=== PATIENT | female | born 1990 | race Caucasian/White ===

== ENCOUNTER 2019-02-19 09:20 | Inpatient (IN) | payer OTHER ==
[~2019-02-19] VITALS: Ht 167.6 cm; Wt 114.8 kg
--- NOTE | 2019-02-19 07:46 | PREOPHP ---
DATE OF ADMISSION: 02/18/2019 HISTORY OF PRESENT ILLNESS: This is a 28-year-old lady, 7, para 6, her EDC 02/26/2019 at 39 weeks , admitted to labor and delivery area for repeat plus tubal ligation sterilization. The procedures were explained to the patient and she understood everything totally. The risks, benefits, and alternatives were discussed with her as well. She wanted to go for repeat . PAST PERSONAL HISTORY: No history of TB, asthma. 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 GYNECOLOGICAL HISTORY: She had menarche at the age of 16, every 28 days interval, 3 to 4 days duration, and moderate in amount. OBSTETRICAL HISTORY: She is 7, para 6. Her first delivery was in 2007. Last delivery was in 2017. All normal delivery except the last 1 was by C- section. FAMILY HISTORY: Noncontributory. REVIEW OF SYSTEMS: CARDIOVASCULAR: No chest pains. RESPIRATORY: No cough. GASTROINTESTINAL: No diarrhea, no vomiting. GENITOURINARY: No dysuria. PHYSICAL EXAMINATION: GENERAL: Reveals a conscious, coherent lady and in no acute distress. VITAL SIGNS: Her blood pressure 130/80, pulse rate 80 per minute, respirations 16 per minute. BREASTS, HEART AND LUNGS: Within normal limits. ABDOMEN: Soft and obese. Fundic height 38 cm. heart tones 140 per minute. PELVIC: Revealed the cervix to be 2 to 3 cm dilated, thick station, floating in cephalic presentation with the bag of water intact. EXTREMITIES: No pedal edema. ADMITTING DIAGNOSIS: A 39 weeks' intrauterine with 1 previous section and multiparity. The patient desires repeat plus sterilization. The procedures were explained to the patient and she understood everything totally. The risks, benefits and alternatives were discussed with her as well. Dictated By: BESSY GIL/NOE Conf#: [id number] DID#: [id number] MTDD
[~2019-02-19 09:20] MED LIST: FOLI-49 PO; HUM100VI13 SQ; INSU100V3 IJ; IRON18TA PO; PREN-6 PO
[2019-02-19 10:27] VITALS: Ht 167.6 cm; Wt 114.8 kg
[2019-02-19 10:28] VITALS: BP 127/59; PULSE 96; RESP 20
[2019-02-19] MEDS: LACTATED RINGER'S 1,000 ML IV SCH ×2 (10:53→13:39)
[2019-02-19] MEDS ORDERED: OXYTOCIN 30 UNITS/LR 500 ML IV PRN ×2 (11:00→17:00)
[2019-02-19] MEDS ORDERED: MISOPROSTOL 200 MCG TAB PR PRN ×2 (11:00→17:00)
[2019-02-19] MEDS ORDERED: METHYLERGONOVINE 0.2 MG INJ IM PRN ×2 (11:00→17:00)
[2019-02-19] MEDS ORDERED: OXYTOCIN 30 UNITS/LR 500 ML IV SCH ×2 (11:00→16:55)
[2019-02-19] MEDS ORDERED: CEFAZOLIN 2 GM/50 ML (PMX) 50 ML IVPB SCH (11:00)
[2019-02-19] MEDS ORDERED: CARBOPROST 250 MCG INJ IM PRN ×2 (11:00→17:00)
--- NOTE | 2019-02-19 14:31 | PREAC ---
Date/Time of Note Date/Time of Note DATE: 02/19/19 TIME: 14:30 Anesthesia Eval and Record Evaluation Time Pre-Procedure Interview DATE: 02/19/19 TIME: 14:30 Age 28 Sex female NPO: 6 hrs Preoperative diagnosis previous c section Planned procedure repeat with BTL Past Medical History Past Medical History: Includes Endo: Diabetes GI: Obesity Surgery & Anesthesia Issues No known issue Meds Anticoagulation: No Beta Vj within 24 hr: No Reason Beta Vj not given: Pt. not on B-Vj Reported Medications Insulin NPH Hum/Reg Insulin Hm (Relion Novolin 70-30 Vial) 100 Unit/1 Ml Vial, 22 UNIT SQ AC DINNER BEDTIME, VIAL 02/19/19 Insulin Regular, Human (Humulin R) 100 Unit/1 Ml Vial, 100 UNIT IJ AC BREAKFAST DINNER, VIAL 02/19/19 Folic Acid* (Folic Acid*) 1 Mg Tablet, 1 MG PO DAILY, TAB 02/19/19 Iron (Iron) 18 Mg Tablet, 18 MG PO DAILY, TAB 02/19/19 Vits #93-Iron Fum-FA ( Formula) 1 Each Tablet, 1 TAB PO DAILY, #1 TAB 02/19/19 Current Medications Lactated Ringer's 1,000 ml @ 125 mls/hr Q8H IV Last administered on 02/19/19at 13:39; Admin Dose 125 MLS/HR; Start 02/19/19 at 10:53 Cefazolin Sodium/ Dextrose 50 ml @ 100 mls/hr ONCE IVPB ; Start 02/19/19 at 11:00 Oxytocin/Lactated Ringer's 500 ml @ 125 mls/hr POST IV ; Start 02/19/19 at 11:00 Oxytocin/Lactated Ringer's 500 ml @ 0 mls/hr ONCE PRN IV .VAGINAL BLEEDING; Start 02/19/19 at 11:00 Methylergonovine Maleate (Methergine) 0.2 mg ONCE PRN IM .VAGINAL BLEEDING; Start 02/19/19 at 11:00 Carboprost Tromethamine (Hemabate) 250 mcg ONCE PRN IM .VAGINAL BLEEDING; Start 02/19/19 at 11:00 Misoprostol (Cytotec) 1,000 mcg ONCE PRN [place] .VAGINAL BLEEDING; Start 02/19/19 at 11:00 Meds reviewed: Yes Allergies Coded Allergies: No Known Allergy (Unverified , 02/19/19) Allergies Reviewed: Yes Labs/Studies Labs Reviewed: Reviewed by anesthesiologist Result Diagram: 02/19/19 1000 02/19/19 1000 Laboratory Tests 02/19/19 10:00 Blood Bank Test 02/19/19 10:00 Antibody Screen NEGATIVE Blood Type O POSITIVE Rh Immune Globulin Candidate NO test: N/A Pre-procedure Exam Last vitals Vital Signs Date Temp Pulse Resp B/P (MAP) Pulse Ox O2 O2 Flow FiO2 Time Delivery Rate 02/19/19 98.4 96 20 127/59 Room Air 10:28 (81) Airway: Adequate mouth opening, Adequate thyromental dist Mallampati: Mallampati IV Teeth: Normal Lung: Normal Heart: Normal ASA Physical Status ASA physical status: 3 Emergency: None Pre-operative Attestations Prior to commencing anesthesia and surgery, the patient was re-evaluated, there was verification of: *The patient's identity *The results of appropriate recent lab work and preoperative vital signs *The above evaluation not changing prior to induction *Anesthetic plan, risk benefits, alternative and complications discussed with patient/family; questions answered; patient/family understands, accepts and wishes to proceed. ANJELICA RAUSCH DO Feb 19, 2019 14:31
[2019-02-19] MEDS ORDERED: METHYLERGONOVINE 0.2 MG INJ ONE (15:30)
[2019-02-19] MEDS ORDERED: CEFAZOLIN 1 GM INJ ONE (15:30)
[2019-02-19] MEDS ORDERED: morphine SULFATE/PF (10 MG/10 ML) INJ ONE (15:37)
[2019-02-19] MEDS ORDERED: FENTAnyl 50 MCG/ML VIAL ONE (15:37)
[2019-02-19] MEDS ORDERED: DEXAMETHASONE 4 MG/ML 1 ML INJ ONE (15:48)
[2019-02-19] MEDS ORDERED: FAMOTIDINE 20 MG INJ ONE (15:48)
[2019-02-19] MEDS ORDERED: ONDANSETRON 4 MG INJ ONE (15:48)
[2019-02-19] MEDS ORDERED: MIDAZOLAM 1 MG/ML 2 ML INJ ONE (16:06)
[2019-02-19] MEDS ORDERED: ONDANSETRON 4 MG INJ IV PRN (16:30)
[2019-02-19] MEDS ORDERED: ZOLPIDEM 5 MG TAB PO PRN (16:30)
[2019-02-19] MEDS ORDERED: NALOXONE (0.4 MG/ML) INJ IV PRN (16:30)
[2019-02-19] MEDS ORDERED: HYDROmorphONE 0.5 MG/0.5 ML SYG IV PRN ×2 (16:30)
[2019-02-19] MEDS ORDERED: DIPHENHYDRAMINE 50 MG INJ IV PRN (16:30)
--- NOTE | 2019-02-19 16:30 | PAC ---
Date/Time of Note Date/Time of Note DATE: 02/19/19 TIME: 16:30 Post-Anesthesia Notes Post-Anesthesia Note Last documented vital signs Vital Signs Date Temp Pulse Resp B/P (MAP) Pulse Ox O2 O2 Flow FiO2 Time Delivery Rate 02/19/19 98 92 18 104/59 99 Room Air Activity: WNL Respiratory function: WNL Cardiovascular function: WNL Mental status: Baseline Pain reasonably controlled: Yes Hydration appropriate: Yes Nausea/Vomiting absent: Yes ANJELICA RAUSCH DO Feb 19, 2019 16:30
--- NOTE | 2019-02-19 16:52 | OPPN ---
Date/Time of Note Date/Time of Note DATE: 02/19/19 TIME: 16:51 Operative Report Planned Procedure Procedure date Feb 19, 2019 Procedure(s) REPEAT CSECTION AND BTL Performed by see signature line Photo Cartographer: GRACIE MERCEDES MD 2nd Photo Cartographer none Anesthesiologist: ANJELICA RAUSCH DO Pre-procedure diagnosis 39 WEEKS IUP PREVIOUS CSECTION MULTIPARITY DESIRES STERILIZATION GDM [id number] Anesthesia Type: [id number] spinal Post-Procedure Post-procedure diagnosis 39 WEEKS IUP PREVIOUS CSECTION MULTIPARITY DESIRES STERILIZATION GDM Findings Live Baby GIRL, Apgars 8and 9, weight 9LBS 3OZ Estimated Blood Loss: 600 - 700 mls Specimen(s) none Grafts/Implant(s) PORTION OF BOTH TUBES AND PLACENTA Complication(s) none BESSY IYER MD Feb 19, 2019 16:52
[2019-02-19] MEDS ORDERED: LACTATED RINGER'S 1,000 ML IV SCH (16:55)
[2019-02-19] MEDS ORDERED: LANOLIN HPA 1 PKT TOP PRN (17:00)
[2019-02-19] MEDS ORDERED: METHYLERGONOVINE 0.2 MG TAB PO PRN (17:00)
[2019-02-19] MEDS: KETOROLAC 30 MG INJ IV PRN (19:23)
[2019-02-19 20:45] VITALS: BP 114/61; PULSE 102; RESP 19
[2019-02-19] MEDS: SENNA/DOCUSATE NA (8.6MG/50MG) TAB PO SCH (21:39)
[2019-02-20] VITALS: BP 109/57; PULSE 99; RESP 17
[2019-02-20 04:03] VITALS: BP 104/59; PULSE 92; RESP 18
[2019-02-20] MEDS: LACTATED RINGER'S 1,000 ML IV SCH ×2 (06:35→10:53)
[2019-02-20 08:00] VITALS: BP 108/62; PULSE 82; RESP 18
--- NOTE | 2019-02-20 08:48 | OPR ---
DATE OF OPERATION: 02/19/2019 PREOPERATIVE DIAGNOSIS: A 39 weeks' intrauterine with 1 previous section, multipa rity, patient desires sterilization, obesity. POSTOPERATIVE DIAGNOSIS: A 39 weeks' intrauterine with 1 previous section, multip arity, patient desires sterilization, obesity. PROCEDURE PERFORMED: Low transverse section plus bilateral tubal ligation and transection. SURGEON: Bessy Mosquera MD. MEDICAL RECORDS SUPERVISOR: Dr. Benitez. ANESTHESIA: Spinal. ANESTHESIOLOGIST: Dr. Wilkerson. OPERATIVE TECHNIQUE: Under spinal anesthesia, the patient was prepped and draped in the usual fashio n for abdominal surgery. After checking for the effect of the anesthesia, a Pfannenstiel incision on the previous scar was excised, 14 cm skin incision was performed. The incision was carried from the skin up to the fascia. Upon opening the skin up to the fascia, the small blood vessels were noted t o be oozing and these were all cauterized. Fascia was opened transversely followed by splitting the muscles vertically and the peritoneum vertically. Upon opening the abdominal cavity, the bladder li de was put in place. The muscles on both sides of the lower abdomen were cut transversely. Then, th e bladder blade was put in place. A small salomon was performed from the serosa up to the endometrium o n the lower uterine segment and the salomon was carried sideways with the aid of my 2 fingers. My left hand was inserted on the lower segment of the uterus and the bag of water was ruptured. Clear fluid was noted. The baby's head was tried to be delivered with good fundal pressure, but with difficulty, so that the vacuum was applied twice, the first one popped up right away and the second one delivere d the baby's head in 3 seconds. The baby's airways was quickly suctioned with amniotic fluid. Then there was 1 loop of tight cord around the baby's neck that needs to be released prior to the delivery of the rest of the body of the baby. Then, baby's cord was clamped after 30 seconds. The baby's ai rways were quickly suctioned with amniotic fluid and baby was handed to the nursery nurse and to the coating technician. The placenta was delivered manually and complete. The uterus was exteriorized. T he uterus was cleansed with wet lap sponge to make sure that no membranes were left behind. Af ter correct sponge count, the uterus was closed in the usual fashion using #1 chromic for the very fi rst layer, continuous locking suture was used followed by #1 chromic for the second layer, imbricatin g sutures were used. Bleeders were checked, and there was no bleeding noted. After checking for any bleeders in which there were none, then the left tube was grasped on the center where the avascular area was. A 1 cm tube was stick tied at the proximal and distal portions with 2-0 silk. The stick t ie with 2-0 chromic above the first silk tie and another free tie with 2-0 chromic above the second t ie. The left tube was cut and the cut ends were cauterized. The left fimbria was identified. Bleed ers were checked, and there was no bleeding noted. Then, the same thing was done on the right side. The fimbria was identified on the right side, 1 cm tube was cut as well and the cut ends were cauter ized. Bleeders were checked, and there was no bleeding noted. Hematoma on both broad ligaments were checked and there was none noted. Then, once again, the uterine incision was checked for any bleede rs and there was no bleeding noted. Then the uterus was put back to the pelvic cavity. Once again, uterine incision was checked for any bleeders and there was no bleeding noted. After correct sponge count, needle count and instrument count as confirmed by the release and technical records clerk and wheel aligner, the abdomen w as closed in the usual fashion using 0 Vicryl for the peritoneum, 0 Vicryl for the muscles, for the f ascia 0 Vicryl continuous stitch was used followed by few [id number] suture, for the subcutaneou s tissue it was closed with 3-0 Vicryl and the skin was closed with 3-0 Vicryl, subcuticular suture w as used. The patient tolerated the procedure well. Estimated blood loss about 700 mL. After the pr ocedure was done, then a vaginal exam was done and the uterus was noted to be hypotonic and some bloo d clots were noted inside the uterus. These were all extracted. Pitocin was given and also 1 dose o f Methergine and the uterus contracted. The patient tolerated the procedure well. Estimated blood l oss about 700 mL. She delivered a healthy baby girl at 1605 p.m. on 02/19/2019 weighing 9 pounds 3 o unces, 4160 grams, 8 and 9, 20.25 inches long. Dictated By: BESSY GIL/NTS Conf#: [id number] DID#: [id number] CC: SALVATORE BENITEZ MD;*EndCC*
[2019-02-20] MEDS: SENNA/DOCUSATE NA (8.6MG/50MG) TAB PO SCH ×2 (09:27→21:48)
[2019-02-20] MEDS ORDERED: HYDROCODONE/APAP (5/325) TAB PO PRN ×2 (09:30)
[2019-02-20 12:14] VITALS: BP 109/58; PULSE 90; RESP 18
[2019-02-20] MEDS: KETOROLAC 30 MG INJ IV PRN (15:16)
[2019-02-20 15:22] VITALS: BP 107/53; PULSE 87; RESP 18
--- NOTE | 2019-02-20 17:22 | PN ---
Date/Time of Note Date/Time of Note DATE: 02/20/19 TIME: 17:20 Assessment/Plan VTE Prophylaxis Risk score (from Ns)>0 risk: 3 SCD applied (from Ns): Yes Pharmacological prophylaxis: NA/contraindicated Pharm contraindication: low risk/ambulating Lines/Catheters IV Catheter Type (from Nrs): Peripheral IV Assessment/Plan Assessment/Plan POSTCSECTION DAY 1 ORDERED ADVANCE DIET TOLERATED CBC ON 3RD POSTOP DAY Result Diagram: 02/20/19 0750 02/20/19 0750 Results 24hrs Laboratory Tests Test 02/20/19 06:28 02/20/19 07:50 Lab Scanned Report REFERENCE LAB White Blood Count 11.9 #H Red Blood Count 3.65 L Hemoglobin 11.2 L Hematocrit 34.1 L Mean Corpuscular Volume 93.4 Mean Corpuscular Hemoglobin 30.7 Mean Corpuscular Hemoglobin Concent 32.8 Red Cell Distribution Width 13.4 Platelet Count 236 Mean Platelet Volume 10.9 H Immature Granulocytes % 0.400 Neutrophils % 72.0 Lymphocytes % 16.7 Monocytes % 10.3 Eosinophils % 0.3 Basophils % 0.3 Nucleated Red Blood Cells % 0.0 Immature Granulocytes # 0.050 H Neutrophils # 8.6 H Lymphocytes # 2.0 Monocytes # 1.2 H Eosinophils # 0.0 Basophils # 0.0 Nucleated Red Blood Cells # 0.0 Sodium Level 135 Potassium Level 3.5 Chloride Level 103 Carbon Dioxide Level 25 Anion Gap 7 Blood Urea Nitrogen 11 Creatinine 0.57 Est Glomerular Filtrat Rate mL/min > 60 Glucose Level 63 #L Calcium Level 8.6 Subjective 24 Hr Interval Summary Free Text/Dictation POST CSECTION DAY 1 COMPLAIN OF INCISIONAL PAINS GOOD URINE OUTPUT PASSING GAS PER RECTUM NO BOWEL MOVEMENT YET Exam/Review of Systems Exam Vitals Vital Signs Date Temp Pulse Resp B/P (MAP) Pulse Ox O2 O2 Flow FiO2 Time Delivery Rate 02/20/19 98.8 87 18 107/53 Room Air 15:22 (71) 02/20/19 95 12:14 Intake and Output 02/19/19 02/19/19 02/20/19 1515:00 23:00 07:00 IntakeIntake Total 450 ml 590 ml OutputOutput Total 350 ml 2695 ml 650 ml BalanceBalance -350 ml -2245 ml -60 ml Exam VITAL SIGNS STABLE: YES AFEBRILE: YES BREAST NOT ENGORGED, NON-TENDER, NO APPRECIABLE MASS: YES LUNGS CLEAR, NO RALES, WHEEZES, RHONCHI: YES SINUS RHYTHM WITHOUT MURMUR: YES ABDOMEN: NON-TENDER FUNDUS: BELOW UMBILICUS BOWEL SOUNDS: PRESENT UTERUS: FIRM INCISION (CLEAN, DRY, AND INTACT): YES LOCHIA: LIGHT DEEP TENDON REFLEXES: 0 EXTREMITIES: NO CALF TENDERNESS EDEMA SCALE: NONE Results Results 24hrs Laboratory Tests Test 02/20/19 06:28 02/20/19 07:50 Lab Scanned Report REFERENCE LAB White Blood Count 11.9 #H Red Blood Count 3.65 L Hemoglobin 11.2 L Hematocrit 34.1 L Mean Corpuscular Volume 93.4 Mean Corpuscular Hemoglobin 30.7 Mean Corpuscular Hemoglobin Concent 32.8 Red Cell Distribution Width 13.4 Platelet Count 236 Mean Platelet Volume 10.9 H Immature Granulocytes % 0.400 Neutrophils % 72.0 Lymphocytes % 16.7 Monocytes % 10.3 Eosinophils % 0.3 Basophils % 0.3 Nucleated Red Blood Cells % 0.0 Immature Granulocytes # 0.050 H Neutrophils # 8.6 H Lymphocytes # 2.0 Monocytes # 1.2 H Eosinophils # 0.0 Basophils # 0.0 Nucleated Red Blood Cells # 0.0 Sodium Level 135 Potassium Level 3.5 Chloride Level 103 Carbon Dioxide Level 25 Anion Gap 7 Blood Urea Nitrogen 11 Creatinine 0.57 Est Glomerular Filtrat Rate mL/min > 60 Glucose Level 63 #L Calcium Level 8.6 Medications Medication Current Medications Cefazolin Sodium/ Dextrose 50 ml @ 100 mls/hr ONCE IVPB ; Start 02/19/19 at 11:00 Oxytocin/Lactated Ringer's 500 ml @ 125 mls/hr POST IV Last administered on 02/19/19at 17:03; Admin Dose 125 MLS/HR; Start 02/19/19 at 11:00 Oxytocin/Lactated Ringer's 500 ml @ 0 mls/hr ONCE PRN IV .VAGINAL BLEEDING; Start 02/19/19 at 11:00 Methylergonovine Maleate (Methergine) 0.2 mg ONCE PRN IM .VAGINAL BLEEDING; Start 02/19/19 at 11:00 Carboprost Tromethamine (Hemabate) 250 mcg ONCE PRN IM .VAGINAL BLEEDING; Start 02/19/19 at 11:00 Misoprostol (Cytotec) 1,000 mcg ONCE PRN [place] .VAGINAL BLEEDING; Start 02/19/19 at 11:00 Methylergonovine Maleate (Methergine) 0.2 mg Q6H PRN PO .VAGINAL BLEEDING; Start 02/19/19 at 17:00 Simethicone (Mylicon) 160 mg Q8H PRN PO .GAS; Start 02/19/19 at 17:00 Senna/Docusate Sodium (Senokot-S) 1 tab BID PO Last administered on 02/20/19at 09:27; Admin Dose 1 TAB; Start 02/19/19 at 21:00 Lanolin (Lanolin Hpa) 1 applic BEDSIDE MEDICATION PRN TOP .NIPPLES Last administered on 02/19/19at 21:39; Admin Dose 1 APPLIC; Start 02/19/19 at 17:00 Diphtheria/ Tetanus/Acell Pertussis (Adacel) 0.5 ml ONCE ONCE IM* ; Start 02/22/19 at 09:00; Stop 02/22/19 at 09:01 Measles/Mumps/ Rubella Vaccine Live (Mmr Ii Vaccine) 0.5 ml ONCE ONCE SC* ; Start 02/22/19 at 09:00; Stop 02/22/19 at 09:01 Oxytocin/Lactated Ringer's 500 ml @ 0 mls/hr ONCE PRN IV .VAGINAL BLEEDING; Start 02/19/19 at 17:00 Methylergonovine Maleate (Methergine) 0.2 mg ONCE PRN IM .VAGINAL BLEEDING; Start 02/19/19 at 17:00 Carboprost Tromethamine (Hemabate) 250 mcg ONCE PRN IM .VAGINAL BLEEDING; Start 02/19/19 at 17:00 Misoprostol (Cytotec) 1,000 mcg ONCE PRN [place] .VAGINAL BLEEDING; Start 02/19/19 at 17:00 Ibuprofen (Motrin) 800 mg Q6H PRN PO MILD PAIN LEVEL 1-3; Start 02/20/19 at 09:30 Acetaminophen/ Hydrocodone Bitart ([place] (5/325)) 1 tab Q4H PRN PO MODERATE PAIN LEVEL 4-6; Start 02/20/19 at 09:30 Acetaminophen/ Hydrocodone Bitart ([place] (5/325)) 2 tab Q4H PRN PO SEVERE PAIN LEVEL 7-10; Start 02/20/19 at 09:30 BESSY IYER MD Feb 20, 2019 17:22
[2019-02-20 19:50] VITALS: BP 122/70; PULSE 87; RESP 18
[2019-02-21] MEDS: IBUPROFEN 800 MG TAB PO PRN (00:11)
[2019-02-21 04:00] VITALS: BP 111/51; PULSE 67; RESP 17
[2019-02-21 08:15] VITALS: BP 95/59; PULSE 72; RESP 16
[2019-02-21] MEDS: SENNA/DOCUSATE NA (8.6MG/50MG) TAB PO SCH (09:00)
--- NOTE | 2019-02-21 15:39 | PN ---
Date/Time of Note Date/Time of Note DATE: 02/21/19 TIME: 15:37 Assessment/Plan VTE Prophylaxis Risk score (from Nsg)>0 risk: 1 SCD applied (from Nsg): No SCD contraindicated: low risk/ambulating Pharmacological prophylaxis: NA/contraindicated Pharm contraindication: low risk/ambulating Lines/Catheters IV Catheter Type (from Nrsg): Peripheral IV Assessment/Plan Assessment/Plan POST CSECTION DAY 2 HOME TOMORROW CBC TOMORROW COUNSELED INSTRUCTED PRESCRIPTION GIVEN FOR PAIN RETURN TO CLINIC IN 2 WEEKS CALL OFFICE IF THERE IS ANY PROBLEM OR CONCERN CONTINUE WITH VITAMINS OD AND FERROUS SULFATE 325MG PO TID DIET ADVISED Result Diagram: 02/20/19 0750 02/20/19 0750 Subjective 24 Hr Interval Summary Free Text/Dictation POST CSECTION DAY 2 LITTLE BOWEL MOVEMENT GOOD URINE OUTPUT FEELS LESS INCISIONAL PAINS Exam/Review of Systems Exam Vitals Vital Signs Date Temp Pulse Resp B/P (MAP) Pulse Ox O2 O2 Flow FiO2 Time Delivery Rate 02/21/19 Room Air 12:30 02/21/19 98.2 72 16 95/59 (71) 08:15 02/20/19 95 12:14 Intake and Output 02/20/19 02/20/19 02/21/19 1515:00 23:00 07:00 IntakeIntake Total 1000 ml 300 ml OutputOutput Total 1050 ml 2180 ml BalanceBalance -50 ml -1880 ml Exam VITAL SIGNS STABLE: YES AFEBRILE: YES BREAST NOT ENGORGED, NON-TENDER, NO APPRECIABLE MASS: YES LUNGS CLEAR, NO RALES, WHEEZES, RHONCHI: YES SINUS RHYTHM WITHOUT MURMUR: YES ABDOMEN: NON-TENDER FUNDUS: BELOW UMBILICUS BOWEL SOUNDS: PRESENT UTERUS: FIRM INCISION (CLEAN, DRY, AND INTACT): YES LOCHIA: LIGHT DEEP TENDON REFLEXES: 0 EXTREMITIES: NO CALF TENDERNESS EDEMA SCALE: NONE Medications Medication Current Medications Cefazolin Sodium/ Dextrose 50 ml @ 100 mls/hr ONCE IVPB ; Start 02/19/19 at 11:00 Oxytocin/Lactated Ringer's 500 ml @ 125 mls/hr POST IV Last administered on 02/19/19at 17:03; Admin Dose 125 MLS/HR; Start 02/19/19 at 11:00 Oxytocin/Lactated Ringer's 500 ml @ 0 mls/hr ONCE PRN IV .VAGINAL BLEEDING; Start 02/19/19 at 11:00 Methylergonovine Maleate (Methergine) 0.2 mg ONCE PRN IM .VAGINAL BLEEDING; Start 02/19/19 at 11:00 Carboprost Tromethamine (Hemabate) 250 mcg ONCE PRN IM .VAGINAL BLEEDING; Start 02/19/19 at 11:00 Misoprostol (Cytotec) 1,000 mcg ONCE PRN [place] .VAGINAL BLEEDING; Start 02/19/19 at 11:00 Methylergonovine Maleate (Methergine) 0.2 mg Q6H PRN PO .VAGINAL BLEEDING; Start 02/19/19 at 17:00 Simethicone (Mylicon) 160 mg Q8H PRN PO .GAS; Start 02/19/19 at 17:00 Senna/Docusate Sodium (Senokot-S) 1 tab BID PO Last administered on 02/21/19at 09:00; Admin Dose 1 TAB; Start 02/19/19 at 21:00 Lanolin (Lanolin Hpa) 1 applic BEDSIDE MEDICATION PRN TOP .NIPPLES Last administered on 02/19/19at 21:39; Admin Dose 1 APPLIC; Start 02/19/19 at 17:00 Diphtheria/ Tetanus/Acell Pertussis (Adacel) 0.5 ml ONCE ONCE IM* ; Start 02/22/19 at 09:00; Stop 02/22/19 at 09:01 Measles/Mumps/ Rubella Vaccine Live (Mmr Ii Vaccine) 0.5 ml ONCE ONCE SC* ; Start 02/22/19 at 09:00; Stop 02/22/19 at 09:01 Oxytocin/Lactated Ringer's 500 ml @ 0 mls/hr ONCE PRN IV .VAGINAL BLEEDING; Start 02/19/19 at 17:00 Methylergonovine Maleate (Methergine) 0.2 mg ONCE PRN IM .VAGINAL BLEEDING; Start 02/19/19 at 17:00 Carboprost Tromethamine (Hemabate) 250 mcg ONCE PRN IM .VAGINAL BLEEDING; Start 02/19/19 at 17:00 Misoprostol (Cytotec) 1,000 mcg ONCE PRN [place] .VAGINAL BLEEDING; Start 02/19/19 at 17:00 Ibuprofen (Motrin) 800 mg Q6H PRN PO MILD PAIN LEVEL 1-3 Last administered on 02/21/19 00:11; Admin Dose 800 MG; Start 02/20/19 at 09:30 Acetaminophen/ Hydrocodone Bitart ([place] (5/325)) 1 tab Q4H PRN PO MODERATE P AIN LEVEL 4-6 Last administered on 02/21/19 00:12; Admin Dose 1 TAB; Start 02/20/19 at 09:30 Acetaminophen/ Hydrocodone Bitart ([place] (5/325)) 2 tab Q4H PRN PO SEVERE PAIN LEVEL 7-10 Last administered on 02/21/19at 11:59; Admin Dose 2 TAB; Start 02/20/19 at 09:30 BESSY IYER MD Feb 21, 2019 15:39
[2019-02-21 16:38] VITALS: BP 110/54; PULSE 82; RESP 18
[2019-02-21 20:00] VITALS: BP 130/69; PULSE 86; RESP 20
[2019-02-22] MEDS: IBUPROFEN 800 MG TAB PO PRN ×3 (00:32→12:37)
[2019-02-22] MEDS: SENNA/DOCUSATE NA (8.6MG/50MG) TAB PO SCH ×2 (00:32→09:37)
[2019-02-22 04:00] VITALS: BP 115/54; PULSE 86; RESP 18
[2019-02-22 08:00] VITALS: BP 117/59; PULSE 78; RESP 18
[2019-02-22] MEDS ORDERED: MEASLES,MUMPS,RUBELLA VACCINE INJ SC* ONE (09:00)
[2019-02-22] MEDS ORDERED: DIPHTH/TET/ACEL PERTUSS (ADULT) 0.5 ML VIAL IM* ONE (09:00)
--- NOTE | 2019-02-23 15:30 | DELSUM ---
Delivery Summary A-C Datetime Report Generated by CPN: 02/23/2019 15:29 DELIVERY PERSONNEL Intelligence Clerk: Palomino, Bubba MATERNAL INFORMATION Delivery Anesthesia: Spinal Medications in Delivery: SEE ANESTHESIA RECORD Delivery QBL (ml): 700 Placenta Cultured: No Maternal Complications: Other Other Maternal Complications: gestational diabetes insulin dependent LABOR SUMMARY EDC: 02/26/2019 00:00 No. Babies in Womb: 1 Attempted: No Labor Anesthesia: None LABOR INFORMATION Reason for Induction: Not Applicable Group B Beta Strep: Negative Antibiotics # of Doses: 1 Antibiotics Time of Last Dose: 02/19/2019 16:00 Steroids Given: None Reason Steroids Not Administered: Not Applicable MEMBRANES Membranes Rupture Method: Artificial Rupture of Membranes: 02/19/2019 16:03 Length of Rupture (hr): 0.03 Amniotic Fluid Color: Clear Amniotic Fluid Amount: Moderate Amniotic Fluid Odor: None STAGES OF LABOR Stage 3 hr: 0 Stage 3 min: 1 CSECTION DELIVERY Primary Indication: Repeat Elective Secondary Indication: Repeat Elective Other Secondary Indication: r c/s btl CSection Urgency: Elective CSection Incidence: Repeat Labor: N/A Elective: Elective CSection Incision: Lower Uterine Transverse Sterilization Procedure: Larry BABY A INFORMATION Delivery Date/Time: 02/19/2019 16:05 Method of Delivery: Born in Route : No : N/A Forceps: N/A Vacuum Extraction: Successful Shoulder Dystocia : N/A ASSISTED DELIVERY BABY A Indication for Assisted Delivery: MD DECISION Catheter Prior to Procedure: Yes Vacuum Number of Pulls: 6 Vacuum Number of PopOffs: 0 Vacuum Broke Worker: [employer] Total Time Vacuum Applied: 20 SEC Vacuum/Forceps Comment: MAXIMUM PRESSURE OBTAINED PER MD SHOULDER DYSTOCIA BABY A Delivery Date/Time: 02/19/2019 16:05 PRESENTATION/POSITION BABY A Presentation: Cephalic Cephalic Presentation: Vertex Vertex Position: Left Occipital Anterior Breech Presentation: N/A PLACENTA INFORMATION BABY A Placenta Delivery Time : 02/19/2019 16:06 Placenta Method of Delivery: Manual Removal Placenta Status: Delivered SCORES BABY A Heart Rate 1 min: >100 bpm Resp Effort 1 min: Good Cry Reflex Irritability 1 min: Cough/Sneeze/Pulls Away Muscle Tone 1 min: Active Motion Color 1 min: Blue/Pale Resuscitation Effort 1 min: Tactile Stimulation SCORE 1 MIN: 8 Heart Rate 5 min: >100 bpm Resp Effort 5 min: Good Cry Reflex Irritability 5 min: Cough/Sneeze/Pulls Away Muscle Tone 5 min: Active Motion Color 5 min: Body [place], Extremit Blue Resuscitation Effort 5 min: Tactile Stimulation SCORE 5 MIN: 9 INFORMATION BABY A Gestational Age at Delivery: 39.0 Gestational Status: Full Term- 39- 40.6 Weeks Outcome : Liveborn, with signs of life Infant Condition : Stable Infant Sex: Female IDENTIFICATION/MEDS BABY A ID Band Number: [id number] ID Band Location: Right Leg; Left Arm Sensor Applied: Yes Sensor Number: [id number] Sensor Location : Cord Clamp Vitamin K Given : Not Given Erythromycin Given: Not Given WEIGHT/LENGTH BABY A Birthweight (gm): 4160 Infant Weight (lb): 9 Weight (oz): 3 Infant Length (in): 20.25 Infant Length (cm): 51.44 CORD INFORMATION BABY A No. Cord Vessels: 3 Nuchal Cord : Around Neck x1, Loose Cord Blood Taken: Yes Infant Suction: Mouth; Nose ASSESSMENT BABY A Infant Complications: None Physical Findings at Delivery: Within Normal Limits Infant Respirations: Appears Normal Law Clerk/ALS Called : No Infant Care By: RT, AND LACHO Singh RN Transferred To: Remains with Mother
== END 2019-02-22 15:29 | disposition home or self-care (01) | DRG 785 ==
LOC: L-D 09:20 → PP1 20:12
PROVIDERS: ADMIT Obstetrics & Gynecology; ATTEND Obstetrics & Gynecology
PROC: 0UB70ZZ Excision of Bilateral Fallopian Tubes, Open Approach (ICD-10-PCS; 2019-02-19)
PROC: 10D00Z1 Extraction of Products of Conception, Low, Open Approach (ICD-10-PCS; principal; 2019-02-19 17:00)
DX: O34.211 Maternal care for low transverse scar from previous cesarean delivery (principal); O69.1XX0 Labor and delivery complicated by cord around neck, with compression, not applicable or unspecified; Z3A.39 39 weeks gestation of pregnancy; Z37.0 Single live birth; Z30.2 Encounter for sterilization
CPT/HCPCS: 80048; 80307; 82947; 82962; 85025; 85610; 85730; 86592; 86850; 86900; 86901; 88302; 99464; J0690; J1100; J1885; J2210; J2250; J2274; J2405; J2590; J3010; J7120